=== PATIENT | female | born 1995 | race Caucasian/White ===

== ENCOUNTER 2022-03-19 11:53 | Outpatient (CLI) | payer BC, SELFPAY ==
--- NOTE | 2022-03-19 12:15 | CRLHL7_ITS ---
For Patients: As a result of the Century Cures Act, medical imaging exams and procedure reports are released immediately into your electronic medical record. You may view this report before your referring provider. If you have questions, please contact your health care provider. INDICATION: Third trimester scan, evaluate growth. CHECK GROWTH, FLUID AND POSITION, RT FOOT APPEARED ROTATED ON PREV EXAMS COMPARISON: 12/25/2021, 12/13/2021, 12/02/2021 TECHNIQUE: Real time ricks scale imaging of the fetus was performed. FINDINGS: Sonographic imaging demonstrates a single living intrauterine gestation. Fetus demonstrates a regular cardiac rate of 145 beats per minute. Fetus has a vertex position. The placenta lies anteriorly. Amniotic fluid volume appears normal and there is a single deepest vertical pocket: 4.8 cm. The estimated weight is 3357gm which lies at the 94th %. On the prior OB ultrasound exam dated 12/02/2021 the estimated weight was at the 66th%. BPD 79th percentile. HC 70th percentile. AC greater than 97th percentile. FL 62nd percentile. The HC/AC ratio measures 0.96 range (0.91-1.05). The right foot is not well evaluated on today`s exam. IMPRESSION: Sonographic gestational age 37 weeks 4 days and sonographic due date 04/05/2022. Sonographic age 11 days ahead of the clinical age. Estimated weight 94th percentile. Abdominal circumference greater than 97th percentile. The right foot is not well evaluated on today`s study. Dictated by Ryan Casanova MD @ 03/19/2022 12:55:29 PM (Electronically Signed)
== END 2022-03-19 11:54 | disposition home or self-care (01) ==
LOC: US 11:53
PROVIDERS: Visit Provider Obstetrics & Gynecology
DX: O35.8XX0 Maternal care for other (suspected) fetal abnormality and damage, not applicable or unspecified (principal); Z3A.37 37 weeks gestation of pregnancy
CPT/HCPCS: 76816

== ENCOUNTER 2022-03-19 12:51 | Outpatient (CLI) | payer BC, SELFPAY ==
[2022-03-19 14:19] LABS: Creatinine* 0.5 mg/dL (0.5-1.5); Estimated Glomerular Filt Rate 133 ml/min
[2022-03-19 14:20] LABS: Alanine Aminotransferase* 17 U/L (4-35); Aspartate Amino Transferase* 27 U/L (12-35); Blood Urea Nitrogen* 5 mg/dL (5-24)
[2022-03-19 14:21] LABS: Total Protein Urine 13 mg/dL
[2022-03-19 14:22] LABS: Creatinine Urine 33.8 mg/dL
[2022-03-20 12:38] LABS: Strep B DNA Probe Negative (Negative)
== END 2022-03-19 12:52 | disposition home or self-care (01) ==
PROVIDERS: Visit Provider Obstetrics & Gynecology
DX: Z34.93 Encounter for supervision of normal pregnancy, unspecified, third trimester (principal); O12.00 Gestational edema, unspecified trimester; Z3A.36 36 weeks gestation of pregnancy
CPT/HCPCS: 82565; 82570; 84156; 84450; 84460; 84520; 87081; 87653

== ENCOUNTER 2022-03-26 12:15 | Outpatient (CLI) | payer BC, SELFPAY ==
[2022-03-26] VITALS (9 sets, daily range): BP systolic 118–129; BP diastolic 62–75; PULSE 93–111; RESP 16; TEMP 36.8; O2SAT 97
[2022-03-26 12:42] LABS: Hematocrit 36.4 % (33.0-51.0); Hemoglobin* 12.3 gm/dL (12.0-16.0); Mean Corpuscular HGB Conc 34 gm/dL (32-36); Mean Corpuscular Hemoglobin 33 pg (26-34); Mean Corpuscular Volume 98 fL (80-100); Platelet Count* 214 K/uL (140-440); Red Blood Count 3.71 m/uL (4.00-5.20); White Blood Count* 12.48 K/uL (4.50-11.00)
[2022-03-26 12:46] LABS: Slide Review Reflex No
[2022-03-26 13:06] LABS: Aspartate Amino Transferase* 25 U/L (12-35); Blood Urea Nitrogen* 5 mg/dL (5-24); Creatinine* 0.5 mg/dL (0.5-1.5); Estimated Glomerular Filt Rate 133 ml/min; Total Protein Urine 14 mg/dL
[2022-03-26 13:07] LABS: Alanine Aminotransferase* 16 U/L (4-35); Fibrinogen* 481 mg/dL (200-450); INR 0.88 (0.91-1.10); Prothrombin Time 12.4 Seconds
[2022-03-26 13:08] LABS: Creatinine Urine 14.7 mg/dL
--- NOTE | 2022-03-26 14:41 | PM.OBLDTN ---
OB - Triage/Final Diagnosis Visit Information Narrative: The patient is a 27 year old 2 para 0 at 37.0 weeks gestation, who presents from the clinic with an elevated blood pressure, rapid weight gain, and increased edema in her lower extremities. Her blood pressures were 120's / 80's on the L&D unit. She has complains or upper abdominal pain the the last few weeks that is recently more painful on the right side. There is no change or increase to this pain except that it is more on the right side instead of bilaterally as it was previously. She describes this pain as a stabbing pain and pressure. It is worse when she lays on her right side and improves when she lays on her left or is upright. It comes and goes and is not constant. She has had occasional headaches. She had a headache yesterday but it went away without intervention. She denies vision changes. Dr. Gonzalez was consulted on this patient. She was ok with her discharging today with a repeat blood pressure check in the clinic on Thursday. I was called to L&D to visit with the patient because she was concerned about this plan. She states that her blood pressure has been more consistently elevated at home. She states that she doesn't know when to be concerned anymore. She thought her symptoms were enough to warrant closer monitoring or an induction. She states that she is just concerned about the well being of her baby. She was offered the option for longer observation, to discharge with a repeat blood pressure check on instead of Thursday or to continue with the previous plan. She choose to discharge with a repeat BP check in the clinic on . Reviewed s/sx of worsening blood pressures and plans to check them herself at home. She does have a home monitor but it is a manual BP cuff. She will be set up with an automatic blood pressure cuff at her clinic visit. Concerns about DC and when to be seen. Reason for evaluation: other (elevated BP in the clinic) Evaluation Laboratory results: Laboratory Tests 03/26/22 03/26/22 03/26/22 Range/Units 12:34 12:34 12:34 WBC 12.48 H (4.50-11.00) K/uL RBC 3.71 L (4.00-5.20) m/uL Hgb 12.3 (12.0-16.0) gm/dL Hct 36.4 (33.0-51.0) % MCV 98 (80-100) fL MCH 33 (26-34) pg MCHC 34 (32-36) gm/dL Plt Count 214 (140-440) K/uL INR 0.88 L (0.91-1.10) Fibrinogen 481 H (200-450) mg/dL BUN 5 (5-24) mg/dL Creatinine 0.5 (0.5-1.5) mg/dL Estimated GFR 133 ml/min AST 25 (12-35) U/L ALT 16 (4-35) U/L Urine Creatinine mg/dL Protein/Creatinin Ratio (0-0.19) Urine Total Protein mg/dL 03/26/22 Range/Units 12:34 WBC (4.50-11.00) K/uL RBC (4.00-5.20) m/uL Hgb (12.0-16.0) gm/dL Hct (33.0-51.0) % MCV (80-100) fL MCH (26-34) pg MCHC (32-36) gm/dL Plt Count (140-440) K/uL INR (0.91-1.10) Fibrinogen (200-450) mg/dL BUN (5-24) mg/dL Creatinine (0.5-1.5) mg/dL Estimated GFR ml/min AST (12-35) U/L ALT (4-35) U/L Urine Creatinine 14.7 mg/dL Protein/Creatinin Ratio 0.90 H (0-0.19) Urine Total Protein 14 mg/dL Vital signs: Vital Signs - 24 hr 03/26/22 12:44 03/26/22 12:45 03/26/22 12:59 Temperature Pulse Rate 111 H 108 H Respiratory Rate Blood Pressure 127/74 120/66 Pulse Oximetry 97 03/26/22 13:15 03/26/22 12:46 03/26/22 13:30 Temperature 98.3 F Pulse Rate 98 110 H Respiratory Rate 16 Blood Pressure 121/73 129/70 Pulse Oximetry 03/26/22 13:44 03/26/22 14:00 03/26/22 14:30 Temperature Pulse Rate 108 H 93 95 Respiratory Rate Blood Pressure 118/62 122/74 127/75 Pulse Oximetry
--- NOTE | 2022-03-26 17:02 | PC.OBNST ---
NST Note NST Note Start: 03/26/22 12:24 Freq: ONCE Status: Active Protocol: Document 03/26/22 16:00 [facility] (Rec: 03/26/22 17:00 [facility] [id number]) NST Note 2 Para (# of births) 0 EDC 04/16/22 Patient Presented with Complaint(s) of Other Other Complaints Continued observation of pre- eclampsia/HTN from clinic Reactive Yes Appropriate for Gestational Age Yes RN Christie Israel RN Date 03/26/22 Reactive Yes Appropriate for Gestational Age Yes KIAN Xie RN Date 03/26/22 OB NST charge Yes Complete NST Note via Write Note Yes The provider's electronic signature indicates the NST is reactive/appropriate for gestational age. *Note to provider: If an addendum is required, open the patient's chart and click on the note under the Nurse/Allied Health tab.
== END 2022-03-26 16:00 | disposition home or self-care (01) ==
LOC: OB OUT 12:18 → OB 12:35
PROVIDERS: Visit Provider Obstetrics & Gynecology
DX: Z34.93 Encounter for supervision of normal pregnancy, unspecified, third trimester (principal); Z3A.37 37 weeks gestation of pregnancy
CPT/HCPCS: 36415; 59025; 82565; 82570; 84156; 84450; 84460; 84520; 85027; 85384; 85610; 99213

== ENCOUNTER 2022-03-31 15:30 | Outpatient (CLI) | payer BC, SELFPAY ==
[2022-03-31 15:52] VITALS: BP 130/78; PULSE 87; RESP 16; TEMP 36.7; O2SAT 98
[2022-03-31 16:10] VITALS: BP 127/69
[2022-03-31 16:13] LABS: Hematocrit 34.3 % (33.0-51.0); Hemoglobin* 11.5 gm/dL (12.0-16.0); Mean Corpuscular HGB Conc 34 gm/dL (32-36); Mean Corpuscular Hemoglobin 33 pg (26-34); Mean Corpuscular Volume 99 fL (80-100); Platelet Count* 203 K/uL (140-440); Red Blood Count 3.46 m/uL (4.00-5.20); White Blood Count* 11.26 K/uL (4.50-11.00)
[2022-03-31 16:16] LABS: Slide Review Reflex No
[2022-03-31 16:28] VITALS: BP 130/70; PULSE 92
[2022-03-31 16:43] LABS: Total Protein Urine 13 mg/dL
[2022-03-31 16:44] LABS: Creatinine* 0.5 mg/dL (0.5-1.5); Estimated Glomerular Filt Rate 133 ml/min
[2022-03-31 16:45] LABS: Alanine Aminotransferase* 14 U/L (4-35); Aspartate Amino Transferase* 30 U/L (12-35); Blood Urea Nitrogen* 6 mg/dL (5-24)
[2022-03-31 16:46] LABS: Creatinine Urine 19.5 mg/dL
--- NOTE | 2022-03-31 18:36 | PC.OBNST ---
NST Note NST Note Start: 03/31/22 15:41 Freq: ONCE Status: Active Protocol: Document 03/31/22 18:32 [facility] (Rec: 03/31/22 18:34 [facility] [id number]) NST Note 2 Para (# of births) 0 EDC 04/16/22 Patient Presented with Complaint(s) of Headache,Other Other Complaints Pt came to unit from clinic for rule-out preeclampsia. Pt reported elevated pressures taken on BP cuff at place of work, and presented to clinic with 3+ edema in bilateral feet Reactive Yes Appropriate for Gestational Age Yes RN Jhoan Jin RN Date 03/31/22 Reactive Yes Appropriate for Gestational Age Yes RN ARELI George Date 03/31/22 OB NST charge Yes Complete NST Note via Write Note Yes The provider's electronic signature indicates the NST is reactive/appropriate for gestational age. *Note to provider: If an addendum is required, open the patient's chart and click on the note under the Nurse/Allied Health tab.
== END 2022-03-31 18:04 | disposition home or self-care (01) ==
LOC: OB OUT 15:46 → OB 17:14
PROVIDERS: Visit Provider Obstetrics & Gynecology
DX: Z34.93 Encounter for supervision of normal pregnancy, unspecified, third trimester (principal); Z3A.38 38 weeks gestation of pregnancy
CPT/HCPCS: 36415; 59025; 82565; 82570; 84156; 84450; 84460; 84520; 85027; 99213

== ENCOUNTER 2022-04-09 07:09 | Inpatient (IN) | payer BC, SELFPAY ==
[2022-04-09] VITALS (55 sets, daily range): BP systolic 111–149; BP diastolic 54–83; PULSE 69–122; RESP 18–20; TEMP 36.6–37.5; O2SAT 90–100; BMI 32.2
[2022-04-09 08:17] LABS: Hematocrit 33.6 % (33.0-51.0); Hemoglobin* 11.4 gm/dL (12.0-16.0); Mean Corpuscular HGB Conc 34 gm/dL (32-36); Mean Corpuscular Hemoglobin 34 pg (26-34); Mean Corpuscular Volume 99 fL (80-100); Platelet Count* 181 K/uL (140-440); Red Blood Count 3.38 m/uL (4.00-5.20); White Blood Count* 9.65 K/uL (4.50-11.00)
[2022-04-09 08:18] LABS: Slide Review Reflex No
[2022-04-09 08:25] LABS: SARS PCR* Negative SARS-CoV-2 (Negative)
[2022-04-09 08:31] LABS: Alanine Aminotransferase* 18 U/L (4-35); Aspartate Amino Transferase* 30 U/L (12-35); Blood Urea Nitrogen* 7 mg/dL (5-24); Creatinine* 0.7 mg/dL (0.5-1.5); Est. Creatinine Clearance* 136.12; Estimated Glomerular Filt Rate 122 ml/min
[2022-04-09 08:32] LABS: INR 0.91 (0.91-1.10); Prothrombin Time 12.6 Seconds
[2022-04-09 08:33] LABS: Fibrinogen* 406 mg/dL (200-450)
[2022-04-09 08:53] LABS: Creatinine Urine 39.8 mg/dL; Total Protein Urine 14 mg/dL
--- NOTE | 2022-04-09 08:56 | W.PM.LDBA ---
Subjective History of Present Illness Time Seen by Provider: 08:56 Date Seen: 04/09/22 Narrative: Patient is being admitted to Labor and Delivery for induction of labor. She is a 27 year old at 39 0/7 weeks gestation. ETHEL is 04/16/2022 by last menstrual period, consistent with early ultrasound. Her full history and physical was dictated by Dr. Estrada on 03/26/2022. Please see this for details. The patient has been extremely uncomfortable, with significant gestational edema. She has also had documented proteinuria, but has been normotensive. This morning, she states that she has had irregular mild contractions since her last examination in the clinic. She denies unusual vaginal discharge, vaginal bleeding, or leakage of fluid. Her fetus is active. OB - H&P: Exam Physical Exam: Vital signs: Pulse BP 94 135/75 04/09/22 07:52 04/09/22 07:52 Narrative: VITAL SIGNS: Noted above. GENERAL APPEARANCE: Alert cooperative white female in no acute distress. MOOD AND AFFECT: Normal. CV: Heart regular rate and rhythm. PULM: Lungs clear to auscultation bilaterally. ABDOMEN: Soft, gravid, nontender. Fundal height is cm. The fetus is in a vertex presentation by Lucas's. heart tones are present with the Doptones in the 140s. : Normal female external genitalia. Cervix is soft, mid to posterior position, 2 cm dilated, 90% effaced, with vertex at a -1 station. EXTREMITIES: Without significant edema, nontender bilaterally. NEURO: Intact. Detailed Labor and Delivery Exam: Patient Gravid: yes Dilation (cm): 2 Effacement (%): 90 Cervix position: posterior Consistency: soft Cervical ripeness score: 8 OB - Problem Based A/P Additional Plan (1) : Status: Acute (2) Gestational edema: Status: Acute Delivery/Labor/Induction Plan Plan: induction Induction method: per pitocin protocol
[2022-04-09] MEDS: LACTATED RINGERS 1000 ML 1,000 ML 125 ML IV ×4 (09:02→19:28)
[2022-04-09] MEDS: OXYTOCIN 30 unit/500 ML in NS 30 UNIT/500 ML BAG IVPB (09:03)
--- NOTE | 2022-04-09 12:55 | PM.OBPNL ---
Pain Control Time Seen by Provider: 12:30 Date Seen: 04/09/22 Pain control: tolerating well Contractions Monitor mode: External Contraction frequency: 3 Contraction pattern: Regular Contraction intensity: Mild Pelvic Exam Dilation (cm): 3 Effacement (%): 90 Station: -2 Assessment and Plan Pitocin rate (mU/min): 5 Assessment: induction ongoing Plan: continue present management Comments: AROM performed, clear fluid.
[2022-04-09] MEDS: fentaNYL 100 MCG/2 ML inj IVP ×2 (15:36→16:15)
[2022-04-09] MEDS: ONDANSETRON 2 MG/ML inj 4 MG IV (16:23)
[2022-04-09] MEDS: ROPIVACAINE 0.2% 100 ml 100 ML 12 MG EPIDURAL (16:42)
[2022-04-09] MEDS: LIDOCAINE 2% (PF) 5 ML VIAL EPIDURAL (16:42)
--- NOTE | 2022-04-09 16:51 | P.ANBPRC_ITS ---
[facility] Medical History (Updated 03/31/22 @ 15:48 by Ashlyn Gonzalez MD) Elevated BP without diagnosis of hypertension Gestational edema Surgical History (Updated 03/26/22 @ 11:56 by Mylene Estrada MD) H/O dilation and curettage Social History (Updated 03/26/22 @ 11:57 by Mylene Estrada MD) Narrative: Lives in [place] with . 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 No smoking, drinking or ilicit drug use. Smoking Status: Never smoker Meds Home Medications and Allergies Home Medications Medication Instructions Recorded Confirmed Type docosahexaenoic acid PO 03/26/22 04/07/22 History Allergies Allergy/AdvReac Type Severity Reaction Status Date / Time No Known Allergies Allergy Verified 04/07/22 14:13 Results Labs Labs: Laboratory Results - last 24 hr 04/09/22 04/09/22 04/09/22 07:20 07:54 07:58 WBC 9.65 RBC 3.38 L Hgb 11.4 L Hct 33.6 MCV 99 MCH 34 MCHC 34 Plt Count 181 INR Fibrinogen BUN Creatinine Estimated Creat Clear Estimated GFR AST ALT Urine Creatinine 39.8 Protein/Creatinin Ratio 0.30 H Urine Total Protein 14 SARS-CoV-2 (PCR) Negative SARS-CoV-2 Blood Type Antibody Screen 04/09/22 04/09/22 04/09/22 07:58 07:58 09:49 WBC RBC Hgb Hct MCV MCH MCHC Plt Count INR 0.91 Fibrinogen 406 BUN 7 Creatinine 0.7 Estimated Creat Clear 136.12 Estimated GFR 122 AST 30 ALT 18 Urine Creatinine Protein/Creatinin Ratio Urine Total Protein SARS-CoV-2 (PCR) Blood Type A Positive Antibody Screen NEGATIVE Vital Signs Vital Signs: Last Vital Signs Temp 98.1 F 04/09/22 15:14 Pulse 73 04/09/22 16:48 BP 138/70 04/09/22 16:48 Pulse Ox 98 04/09/22 16:40 Weight: 104.901 kg Height: 180.34 cm Anesthesia Procedures Epidural Insertion Patient Location: OB Reason for Block: primary anesthetic Patient Position: sitting Performed By: Ezio Varela Preanesthetic Checklist: IV checked, risks and benefits discussed, surgical consent, monitors and equipment checked, pre-op evaluation, timeout performed and anesthesia consent Prep: chlorhexidine gluconate Monitoring: blood pressure monitoring, monitor tech, continuous pulse oximetry and heart rate Approach: midline Vertebral Space: lumbar (1-5) Needle Type: Tuohy needle Injection Technique: continuous catheter Needle gauge: 17 Needle Length (cm): 10 cm Needle Insertion Depth (cm): 6 Catheter Gauge: 19 Catheter Type: multi-orifice Catheter at skin depth (cm): 12 Test Dose Result: negative and lidocaine 1.5% with epinephrine 1 to 200,000 Events: other
--- NOTE | 2022-04-09 20:41 | PM.OBPNL ---
Pain Control Time Seen by Provider: 20:41 Date Seen: 04/09/22 Pain control: tolerating well and epidural Comments: Starting to feel pressure like the baby is pushing out her rectum. Contractions Monitor mode: External Contraction frequency: 3 Contraction pattern: Regular Contraction intensity: Mild Pelvic Exam Dilation (cm): 10 Effacement (%): 100 Station: +2 Assessment and Plan Assessment: active labor Comments: Begin active pushing.
[2022-04-09] MEDS: LIDOCAINE 1% MDV 20 ML INJECTION (23:05)
--- NOTE | 2022-04-09 23:44 | P.OBPRC_ITS ---
Procedure Delivery date: 04/09/22 Procedure Done: Global Intrapartal Events: Labor Induction Induction method: per pitocin protocol Delivery augmentation: rupture of membranes and pitocin Delivery monitor: external FHT and external uterine Route of delivery: Laceration description: Vaginal - 2nd Degree (with extension of skin laceration to level of anus; rectal sphincter intact) Delivery repair: Vicryl (2-0 for reapproximation of bulbocavernosus muscles, 3-0 for vaginl repair) and Chromic (3-0 for subcuticular skin closure) Estimated blood loss (mL): 350 Anesthesia type: Epidural Disposition: floor Complications: None. Narrative: The patient is a 27 year-old admitted on 04/09/2022 at 39 Weeks, 0 Days gestation for induction of labor.? Cervical exam on admission was 2 cm/90 % effaced/-1 station with membranes intact in vertex presentation.? Contractions were occasion.? heart rate demonstrated baseline 140 bpm with moderate variability, + accelerations, - decelerations; a category 1 tracing.? Pitocin was administered intravenously to induce labor per protocol. AROM occurred at 1230 with clear fluid. ? Labor Analgesia:? Fentanyl IV at 1536 and 1615, Epidural at 1642 ? Labor onset:? 1530 ? Complete:? 2034 ? Pushing:? 2100. Initially, fetus was in OB position, pushing was suspended, side-lying release was done, and then pushing restarted approximately 30 minutes prior to delivery. ? heart tones during second stage were 140 bpm baseline, good variability, accelerations present. ? At 2254 a viable male infant delivered in vertex OA presentation over second- degree midline laceration via spontaneous vaginal delivery.? Infant was placed on maternal abdomen.? Cord was clamped and cut after a 30-60 second delay.? Nose and mouth were bulb suctioned.? weight pending.? 9 at 1 minute and 9 at 5 minutes.? Shoulder dystocia: No.? Nuchal cord: No. ? Placenta delivered spontaneously and complete at 2258 with a 3 vessel cord. ? Mother and infant were stable after delivery. ? Lacerations:? Second-degree midline with extension of the skin to the level of the anus, repaired with 2-0 vicryl, 3-0 vicryl, and 3-0 chromic. ? Blood loss: 350 mL. Blood loss measurement type: QBL ? Sponge and needles counts are correct. Infant Gender: Male presentation: vertex Placental Delivery Description: Spontaneous Cord Description: 3 Vessels
[2022-04-10] VITALS (15 sets, daily range): BP systolic 111–152; BP diastolic 63–85; PULSE 71–102; RESP 15–18; TEMP 36.6–37.3; O2SAT 95–98
[2022-04-10] MEDS: IBUPROFEN 600 MG TABLET PO ×4 (02:04→20:15)
[2022-04-10] MEDS: ACETAMINOPHEN 500 MG TABLET 1000 MG PO ×4 (05:08→23:10)
[2022-04-10 07:03] LABS: Hemoglobin* 10.6 gm/dL (12.0-16.0)
[2022-04-10] MEDS: DOCUSATE SODIUM 100 MG CAPSULE PO ×2 (08:22→20:15)
--- NOTE | 2022-04-10 10:42 | P.OBPN_ITS ---
OB - PN:Subj Subjective Date Seen: 04/10/22 Patient comments OB post-: pain well controlled, perineal pain, tolerating diet and flatus present [place] status: and doing well [place] feeding status: exclusively Narrative: Day 1:? Vaginal Delivery at 39 and 0/7 weeks.? ?? Complications:? none? The patient feels well.? The pain is well controlled with current medica tions.?Complains of some perineal pain at the site of the repaired laceration but it is controlled with medication, tucks, dermoplast, ice, and position changes. She has no new complaints.? Urinary output is adequate and she is voiding without difficulty.? Has a good appetite, is tolerating a general diet, is passing flatus, and has not had a bowel movement.? Has?small amount of rubra lochia.? She is ambulating well.?She is and feels that it is going well so far. OB - PN: Obj Exam Physical Exam: Vital signs: Temp Pulse Resp BP Pulse Ox O2 Del Method 98.6 F 75 16 111/73 96 04/10/22 07:45 04/10/22 07:45 04/10/22 07:45 04/10/22 07:45 04/10/22 07:45 04/10/22 07:45 Constitutional: Constitutional: no acute distress Routine HEENT Exam: Head: Present normal inspection Eye: Present normal appearance Routine Neck Exam: Neck: Present full ROM Routine Respiratory Exam: Respiratory: Present CTA bilaterally Routine Cardiovascular Exam: Cardiovascular: Present RRR Routine Abdominal Exam: Fundus: Present firm Routine Exam: Perineum Description: Normal Routine Extremities Exam: Extremities: Present full ROM Routine Back/Spine/Pelvis Exam: Back/Spine: Present full ROM Routine Neurological Exam: Neurological: Present alert OB - PN: Obj Data Labs Labs: Laboratory Results - last 24 hr 04/10/22 06:50 Hgb 10.6 L OB - PN: A/P Vaginal Delivery Assessment and Plan (1) : Status: Acute (2) Gestational edema: Status: Acute Plan Plan: routine care Comments: Anticipate discharge tomorrow or Thursday per pt preference.
[2022-04-11 00:15] VITALS: BP 115/75; PULSE 71; RESP 16; TEMP 36.4; O2SAT 97
[2022-04-11] MEDS: IBUPROFEN 600 MG TABLET PO ×2 (01:57→08:29)
[2022-04-11 05:15] VITALS: BP 113/71; PULSE 70; RESP 15; TEMP 36.7; O2SAT 97
[2022-04-11] MEDS: ACETAMINOPHEN 500 MG TABLET 1000 MG PO (05:45)
[2022-04-11 08:25] VITALS: BP 113/66; PULSE 90; RESP 16; TEMP 36.7; O2SAT 97
[2022-04-11] MEDS: DOCUSATE SODIUM 100 MG CAPSULE PO (08:30)
--- NOTE | 2022-04-11 09:53 | P.DS_ITS ---
DS: Providers Provider Date Seen: 04/11/22 Date of admission: 04/09/22 07:09 Primary care physician: Not a Local Provider Admitting Clinician: Dennise Jarvis CNM Attending Physician on discharge: Wanda Bean CNM Date of Discharge: 04/11/22 DS: Diagnosis Discharge Diagnosis (1) care and examination immediately after delivery: Status: Acute (2) Normal vaginal delivery: Status: Acute (3) Elevated BP without diagnosis of hypertension: Status: Acute (4) Lactating mother: Status: Acute (5) Second degree perineal laceration during delivery: Status: Acute Exam Const: Vital Signs, click to edit/add: Vital Signs - 24 hr 04/10/22 11:42 04/10/22 17:14 04/10/22 18:00 Temperature 98.4 F 98.4 F Pulse Rate [Pulse Oximeter] 83 102 H 88 Respiratory Rate 16 16 Blood Pressure [Le ft Arm] 115/71 Blood Pressure [Ri ght Arm] 119/70 152/75 H Pulse Oximetry 98 98 97 Oxygen Delivery Me thod Room Air Room Air Room Air 04/10/22 20:05 04/11/22 00:15 04/11/22 05:15 Temperature 97.8 F 97.6 F 98.0 F Pulse Rate [Pulse Oximeter] 71 71 70 Respiratory Rate 15 16 15 Blood Pressure [Le ft Arm] 122/85 115/75 113/71 Blood Pressure [Ri ght Arm] Pulse Oximetry 96 97 97 Oxygen Delivery Me thod Room Air Room Air Room Air 04/11/22 08:25 Temperature 98.0 F Pulse Rate [Pulse Oximeter] 90 Respiratory Rate 16 Blood Pressure [Le ft Arm] 113/66 Blood Pressure [Ri ght Arm] Pulse Oximetry 97 Oxygen Delivery Me thod Room Air Documenting provider has reviewed patient's vital signs: yes Common normals: no apparent distress, oriented x3, no limitations, healthy appearing, alert and well nourished HENMT: Common normals: normocephalic Head and scalp: normocephalic Eye: Common normals: PERRL and EOMs intact bilaterally Pupil: PERRL Neck & C-Spine: Common normals: full ROM and supple Chest: Common normals: inspection of chest normal Other: Breast exam: deferred Resp: Common normals: normal respiratory effort, no retractions and clear to auscultation bilaterally Auscultation: clear to auscultation bilaterally Cardio: Common normals: regular rate and regular rhythm Rate: regular rate Rhythm: regular rhythm GI: Common normals: Normal to inspection, nondistended, normoactive bowel sounds present, soft to palpation and non-tender Palpation: soft : OB/external & speculum: Yes perineal/vaginal laceration (well approximated) Laceration: 2nd Uterus: U/U Lochia: scant Back & Pelvis: Common normals: thoracic and lumbar spine normal to inspection and thoraco-lumbar ROM normal Extremity: Common normals: normal to inspection and full ROM Neuro: Common normals: oriented x3, moves all extremities and gait normal Sensorium/orientation: alert Psych: Common normals: mental status grossly normal, thought process normal, affect normal, speech normal and activity/motor behavior normal Speech: normal speech Thought process: normal thought process Skin: Common normals: no rashes or lesions noted General skin exam: no rashes or lesions noted OB - DS: Summary Hospital Course Hospital Course: The patient is a 27 year old G 2 P 1011 at 39 2/7 weeks gestation that was admitted to the Center on 04/09/22 for SROM. She had an uncomplicated vaginal delivery. She delivered a viable male . She is breast feeding and reports it is going well. the patient has done well. Peripartum Data delivery method: Vaginal Laceration description: Perineal - 2nd Degree complications: none Infant Gender: Male Discharge Plan: Home Status at Discharge Functional status at discharge: independent ambulation Overall status at discharge: patient is progressing back to baseline Time Spent with Patient Time attestation: Total time spent providing and/or coordinating discharge services: Time spent: Less than 30 minutes Discharge Plan Discharge Disposition: Home, Self-Care Date of Admission: 04/09/22 07:09 Attending Provider on Discharge: Wanda Bean Primary Care Provider: Provider,Not a Local Condition: Stable Anticipated Discharge Date/Time: 04/11/22 12:00 Discharge Medications: New acetaminophen 500 mg Tablet 1,000 mg PO Q6H PRNQty: 0 0RF docusate sodium 100 mg Capsule 100 mg PO BID Qty: 90 0RF ibuprofen 600 mg Tablet 600 mg PO Q6H PRNQty: 60 0RF Continued (DME) Blood Pressure Cuff Misc See Rx Instructions .Route Qty: 1 0RF Rx Instructions: As directed docosahexaenoic acid [ DHA] PO Discontinued hydroxyzine pamoate [Vistaril] 50 mg capsule 50 mg PO .qhs Qty: 20 0RF Rx Instructions: May use one or two capsules at bedtime as needed for sleep Discharge Orders: Discharge Order (Routine); Ordered 04/11/22 Ordered By: Wanda Bean Patient Education: OB Vaginal/Breast Feeding Activity Restrictions/Additional Instructions: Discharge instructions were reviewed with the patient including signs and symptoms of infection and home going medications Nothing vaginally for 6 weeks: no tampons or intercourse Do not drive while taking narcotic pain medication(s) Off Work or School for 8 weeks Symptoms to report to doctor: * Bleeding that saturates more than one pad per hour * Passing clots larger than the size of a golf ball * Pain not relieved by prescribed medication * Fever above 100.4 degrees Fahrenheit * A foul vaginal odor * Difficulty in emotions, mood, and functions * Thoughts of hurting yourself and/or * Painful, reddened area in your breast * Any drainage, redness, or tenderness in your IV/epidural site * Severe headache that doesn't improve after taking medications * Changes in vision, including temporary loss of vision, blurred vision, and/or light sensitivity * Upper abdominal pain (usually under ribs on the right side) * Decrease in urination or painful, frequent urinating * Chest pain * Shortness of breath * Tenderness or pain with redness and/swelling in the calf(s) of your leg 2-week visit: discuss infant feeding concerns, review control options and screen for anxiety/depression. 6-week visit for an annual exam. consultation services are available to all mothers and babies for the first year after delivery.? To make an appointment, please call [phone]. Activity Level: No Restrictions Discharge Diet: Regular Follow Up Appointments: [facility] [Provider Group] Forms: MyHealth Info Instructions
== END 2022-04-11 10:55 | disposition home or self-care (01) | DRG 560 ==
PROVIDERS: Obstetrics & Gynecology; Admitting Provider Advanced Practice Midwife; Visit Provider Advanced Practice Midwife
DX: O14.94 Unspecified pre-eclampsia, complicating childbirth (principal); O70.1 Second degree perineal laceration during delivery; Z3A.39 39 weeks gestation of pregnancy; Z37.0 Single live birth
CPT/HCPCS: 01967; 36415; 82565; 82570; 84156; 84450; 84460; 84520; 85018; 85025; 85027; 85384; 85610; 86850; 86900; 86901; 87635; A9270; J2405; J2795; J3010; J7120

== ENCOUNTER 2023-07-17 08:09 | Outpatient (CLI) | payer BC, SELFPAY ==
--- NOTE | 2023-07-17 08:15 | CRLHL7_ITS ---
For Patients: As a result of the Century Cures Act, medical imaging exams and procedure reports are released immediately into your electronic medical record. You may view this report before your referring provider. If you have questions, please contact your health care provider. INDICATION: . Evaluate for viability, size and dates. TECHNIQUE: Endovaginal pelvic ultrasound. COMPARISON: None. FINDINGS: Anechoic unilocular intrauterine cyst consistent with a gestational sac. Mean sac diameter is 2.5 cm corresponding to an EGA of 7 weeks 4 days with an ETHEL of 02/29/2024. No yolk sac or pole is present within this finding. Right and left small (less than 20 percent circumference of the gestational sac) perigestational hemorrhages are noted. 4.8 cm right ovarian complex cyst with thick internal septations converging on a solid-appearing element with straight margins. No intracystic avascular solid elements are demonstrated. This finding was likely represents hemorrhagic cyst. Follow-up to document resolution is recommended, for example in 6-12 weeks. Normal left ovary. No significant pelvic ascites. IMPRESSION: Intrauterine of uncertain viability. Short interval follow up ultrasound in 7 days is recommended to document viability. Right ovarian complex cystic lesion described above, most likely representing a hemorrhagic cyst. Follow-up to document resolution of this finding is recommended in 6-12 weeks. Dictated by El Burk MD @ 07/17/2023 9:06:55 AM (Electronically Signed)
== END 2023-07-17 08:10 | disposition home or self-care (01) ==
PROVIDERS: Visit Provider Registered Nurse
DX: Z34.91 Encounter for supervision of normal pregnancy, unspecified, first trimester (principal); Z3A.01 Less than 8 weeks gestation of pregnancy
CPT/HCPCS: 76817

== ENCOUNTER 2023-07-21 08:30 | Day surgery (SDC) | payer BC, SELFPAY ==
[2023-07-21 08:49] VITALS: BP 113/70; PULSE 79; RESP 16; TEMP 37.1; O2SAT 98
[2023-07-21] MEDS: LACTATED RINGERS 1000 ML 1,000 ML 100 ML IV ×2 (09:00→10:28)
[2023-07-21] MEDS: SODIUM CHLORIDE 0.9 % (FLUSH) 10 ML SYRINGE IVF (09:01)
[2023-07-21] MEDS: DOXYCYCLINE HYCLATE 200 MG in 0.9 % SODIUM CHLORIDE 250 ml 250 ML 250 MG IVPB (09:06)
--- NOTE | 2023-07-21 09:49 | P.PCN_ITS ---
Procedure Note Time Seen by Provider: 10:56 Date Seen: 07/21/23 Will [facility] bill your pro fee for this procedure?: Yes Procedure: Preoperative diagnosis: Kaelyn is a 28-year-old 3 para 1021 with an anembryonic at 7and 4/7 weeks gestation by ultrasound. Postoperative diagnosis: Same Procedure: Suction curettage Anesthesia: Conscious sedation, paracervical block Surgeon: Ashlyn Gonzalez MD [employer] Guard: Not applicable IV fluid: 1000 mL Estimated blood loss: 3 mL Urine output: 500 mL clear urine at the beginning of the procedure Specimen: Products of conception to pathology Findings: On exam under anesthesi: the uterus was approximately 8 weeks size, mid position. Cervical os was closed without active bleeding. Adnexa were without mass or fullness palpable. The uterus sounded to [] cm. Uterus sounded to 10 cm. On suction curettage there was a moderate to large amount of products of conception. The patient and her spouse declined products of conception to cytogenetics. Procedure: Kaelyn was taken to the operating room where conscious sedation was found to be adequate. She was placed in the dorsal lithotomy position and an exam under anesthesia was performed with with findings stated above. She was then prepped and draped in normal sterile manner. Straight catheterization was performed for approximately 500 mL of clear urine. A bivalve speculum was placed in the vagina to visualize the cervix. A paracervical block was placed using 0.5% Marcaine: 5 mL injected at the 4 and 8 o'clock positions on the cervix. The anterior lip of the cervix was grasped with a long Allis clamp. The cervix was dilated to Hegar # 10. The uterus sounded to 10 cm. A # 10 curved curette was then advanced into the uterus without difficulty. A suction curettage was then performed using 40-50 mmHg pressure. 3 passes with the curette were performed to remove all visualized tissue. The curette was removed and mild, sharp curettage was performed to verify that all of the products of conception had been removed. One last pass with the curved curette was then made to verify that all of the tissue had been removed. The Allis clamp was removed from the anterior lip of the cervix. Nothing was needed to obtain hemostasis. Excellent hemostasis was noted. The speculum was then removed from the vagina. The patient tolerated this procedure well. Sponge, lap and instrument counts were correct x2 the end of the procedure. The patient was awakened from sedation and taken to the recovery area in stable condition. Patient received doxycycline 200 mg IV x1 prior to going back to the operating r oom. Anesthesia: MAC and local Surgeon: Ashlyn Gonzalez Pathology: specimen obtained, sent to pathology Condition: stable Disposition: same day
--- NOTE | 2023-07-21 09:49 | W.PM.H&PU ---
History & Physical Update History & Physical Update H&P Reviewed and patient assessed: No changes noted
[2023-07-21] MEDS: BUPIVACAINE 0.5% 30 ML INJECTION (10:34)
[2023-07-21 10:50] VITALS: BP 106/69; PULSE 73; RESP 16; TEMP 36.5; O2SAT 96
--- NOTE | 2023-07-21 10:50 | W.ANESCHARGE ---
Anesthesia Charges Start Date/Time Anesthesia Start Date: 07/21/23 Anesthesia Start Time: 10:20 Stop Date/Time Anesthesia Stop Date: 07/21/23 Anesthesia Stop Time: 10:51
[2023-07-21 11:05] VITALS: BP 98/56; PULSE 67; RESP 16; O2SAT 99
[2023-07-21 11:20] VITALS: BP 99/59; PULSE 71; RESP 16; TEMP 36.7; O2SAT 99
[2023-07-21 11:35] VITALS: BP 106/63; PULSE 66; RESP 16; O2SAT 99
--- NOTE | 2023-07-21 12:18 | W.ANESCHARGE ---
Anesthesia Charges Start Date/Time Anesthesia Start Date: 07/21/23 Anesthesia Start Time: 10:20 Stop Date/Time Anesthesia Stop Date: 07/21/23 Anesthesia Stop Time: 10:51
== END 2023-07-21 11:51 | disposition home or self-care (01) ==
PROVIDERS: PCP Registered Nurse; Visit Provider Obstetrics & Gynecology
PROC: (CPT 59820; principal; 2023-07-21 10:00)
DX: O02.0 Blighted ovum and nonhydatidiform mole (principal)
CPT/HCPCS: 59820; 00940; 01965; 88237; 88271; 88305; 88342; J0665; J1100; J1885; J2250; J2405; J2704; J3010; J7050; J7120

== ENCOUNTER 2023-10-16 07:09 | Outpatient (CLI) | payer BC, SELFPAY ==
--- NOTE | 2023-10-16 07:15 | US_ITS ---
Patient: MALLORY GUTIÉRREZ Facility:?[facility] Patient ID:?[id number] Site Patient ID:?[id number]. Site :?[id number] Study:?US-Pelvis PELVIS TV-10/16/2023 7:45:42 AM Ordering Physician:?MAXWELL HERNANDEZ Final Report: INDICATION: Follow up right ovarian cyst TECHNIQUE: Transvaginal scanning was performed to optimally evaluate the endometrium and adnexa. Ovarian blood flow was evaluated with color-flow doppler. COMPARISON: Pelvic ultrasound of 07/17/2023 FINDINGS: The uterus is normal in size and shape. The uterus measures 7.9 x 3.6 x 5.3 cm. No uterine mass is evident. The endometrial stripe is normal in thickness at 6 mm. The previously demonstrated complex 4.8 cm right ovarian cyst has resolved. The right ovary measures 3.8 x 2.7 x 2.6 cm and left 3.1 x 1.4 x 1.2 cm. Ovarian blood flow is demonstrated with color-flow and pulsed Doppler. No adnexal mass is evident. No free fluid is demonstrated. IMPRESSION: Negative pelvic ultrasound. Previously demonstrated complex 4.8 cm right ovarian cyst resolved. Dictated by Kyrie Dobbins MD @ 10/16/2023 9:57:53 AM Signed by:?Kyrie Dobbins MD @10/16/2023 9:57:53 AM (Electronic Signature)
== END 2023-10-16 07:10 | disposition home or self-care (01) ==
PROVIDERS: Visit Provider Registered Nurse
DX: N83.201 Unspecified ovarian cyst, right side (principal)
CPT/HCPCS: 76830

== ENCOUNTER 2024-02-09 08:51 | Outpatient (CLI) | payer BC, SELFPAY | END 2024-02-09 08:52 | disposition home or self-care (01) | LOC: NFLDREF 02-11 15:08 | PROVIDERS: Visit Provider Obstetrics & Gynecology | DX: Z34.90 Encounter for supervision of normal pregnancy, unspecified, unspecified trimester (principal) | CPT/HCPCS: 84702 ==

== ENCOUNTER 2024-02-11 11:30 | Outpatient (CLI) | payer BC, SELFPAY | END 2024-02-11 11:31 | disposition home or self-care (01) | LOC: NFLDREF 02-12 11:28 | PROVIDERS: Visit Provider Obstetrics & Gynecology | DX: Z34.90 Encounter for supervision of normal pregnancy, unspecified, unspecified trimester (principal) | CPT/HCPCS: 84702 ==

== ENCOUNTER 2024-02-15 08:13 | Outpatient (CLI) | payer BC, SELFPAY | END 2024-02-15 08:14 | disposition home or self-care (01) | LOC: NFLDREF 02-16 18:30 | PROVIDERS: Visit Provider Obstetrics & Gynecology | DX: Z34.81 Encounter for supervision of other normal pregnancy, first trimester (principal) | CPT/HCPCS: 84702 ==

== ENCOUNTER 2024-03-01 07:00 | Outpatient (CLI) | payer BC, SELFPAY ==
--- NOTE | 2024-03-01 07:15 | CRLHL7_ITS ---
For Patients: As a result of the Century Cures Act, medical imaging exams and procedure reports are released immediately into your electronic medical record. You may view this report before your referring provider. If you have questions, please contact your health care provider. INDICATION: First trimester scan, establish dates. COMPARISON: None. TECHNIQUE: Real-time ricks-scale imaging of the pelvis was performed. FINDINGS: Sonographic imaging demonstrates a single living intrauterine gestation. The embryo demonstrates a regular cardiac rate measuring 124 beats per minute. The embryo`s crown-rump length measurement of 0.85 cm corresponds to a gestational age of 6 weeks 6 days with a sonographic due date of 10/19/2024. There is a normal-appearing yolk sac. There are no gross abnormalities noted within the embryo at this early state of development. The gestational sac has a normal appearance. There is a 14 x 8 x 7 millimeter perigestational hemorrhage. The amount of fluid within the sac appears appropriate for gestational age. The cervix is closed. The myometrium appears normal. The ovaries are of normal size. Corpus luteal cyst right ovary. There are no suspicious fluid collections noted in the cul-de-sac. IMPRESSION: Gestational age calculated at 6 weeks 6 days with a sonographic due date of 10/19/2024. 14 x 8 x 7 millimeter left-sided subchorionic hemorrhage. Dictated by Ryan Casanova MD @ 03/01/2024 12:13:51 PM (Electronically Signed)
== END 2024-03-01 07:01 | disposition home or self-care (01) ==
LOC: US 07:00
PROVIDERS: Visit Provider Physician Assistant
DX: Z34.91 Encounter for supervision of normal pregnancy, unspecified, first trimester (principal); O20.9 Hemorrhage in early pregnancy, unspecified; Z3A.01 Less than 8 weeks gestation of pregnancy
CPT/HCPCS: 76817; 82565; 82570; 84156; 84450; 84460; 86703; 86706; 86803; 86850; 86900; 86901; 87086; 87340; 87491; 87591

== ENCOUNTER 2024-03-01 08:00 | Outpatient (CLI) | payer BC, SELFPAY ==
[2024-03-01 13:28] LABS: Chlamydia DNA Amplified* NOT DETECTED (No Detected); GC DNA Amplified* NOT DETECTED (No Detected)
== END 2024-03-01 08:01 | disposition home or self-care (01) ==
PROVIDERS: Visit Provider Physician Assistant
DX: Z34.91 Encounter for supervision of normal pregnancy, unspecified, first trimester (principal); Z3A.01 Less than 8 weeks gestation of pregnancy
CPT/HCPCS: 82565; 82570; 84156; 84450; 84460; 86592; 86703; 86704; 86706; 86762; 86787; 86803; 86850; 86900; 86901; 87086; 87340; 87491; 87591

== ENCOUNTER 2024-03-03 06:30 | Outpatient (CLI) | payer BC, SELFPAY | END 2024-03-03 06:31 | disposition home or self-care (01) | LOC: NFLDREF 03-06 03:38 | PROVIDERS: Visit Provider Physician Assistant | DX: Z34.81 Encounter for supervision of other normal pregnancy, first trimester (principal) | CPT/HCPCS: 82570; 84156 ==

== ENCOUNTER 2024-03-15 07:02 | Outpatient (CLI) | payer BC, SELFPAY ==
--- NOTE | 2024-03-15 07:15 | CRLHL7_ITS ---
For Patients: As a result of the Century Cures Act, medical imaging exams and procedure reports are released immediately into your electronic medical record. You may view this report before your referring provider. If you have questions, please contact your health care provider. INDICATION: DATING AND VIABILITY FOLLOW UP COMPARISON: 03/01/2024 TECHNIQUE: Real-time ricks-scale imaging of the pelvis was performed. FINDINGS: Sonographic imaging demonstrates a single living intrauterine gestation. The embryo demonstrates a regular cardiac rate measuring 169 beats per minute. The embryo`s crown-rump length measurement of 2.4 cm corresponds to a gestational age of 9 weeks 1 day with a sonographic due date of 10/17/2024. There is a normal-appearing yolk sac. There are no gross abnormalities noted within the embryo at this early state of development. The gestational sac has a normal appearance. There is a 2.6 x 1.0 x 1.0 cm perigestational hemorrhage. The amount of fluid within the sac appears appropriate for gestational age. The cervix is closed. The myometrium appears normal. The ovaries are of normal size. Corpus luteal cyst right ovary. There are no suspicious fluid collections noted in the cul-de-sac. IMPRESSION: Single living intrauterine with sonographic gestational age 9 weeks 1 day and sonographic due date of 10/17/2024. Left-sided subchorionic hemorrhage measuring 2.6 x 1.0 x 1.0 cm. Previously, this measured 1.4 x 0.8 x 0.7 cm. Dictated by Ryan Casanova MD @ 03/15/2024 9:34:54 AM (Electronically Signed)
== END 2024-03-15 07:03 | disposition home or self-care (01) ==
LOC: US 07:02
PROVIDERS: Visit Provider Physician Assistant
DX: O26.21 Pregnancy care for patient with recurrent pregnancy loss, first trimester (principal); O20.9 Hemorrhage in early pregnancy, unspecified; Z3A.09 9 weeks gestation of pregnancy
CPT/HCPCS: 76817

== ENCOUNTER 2024-05-30 07:10 | Outpatient (CLI) | payer BC, SELFPAY ==
--- NOTE | 2024-05-30 07:15 | CRLHL7_ITS ---
For Patients: As a result of the Century Cures Act, medical imaging exams and procedure reports are released immediately into your electronic medical record. You may view this report before your referring provider. If you have questions, please contact your health care provider. INDICATION: Evaluate anatomy. COMPARISON: 03/15/2024 TECHNIQUE: Real time ricks scale imaging of the fetus was performed as well as color Doppler analysis of the umbilical vessels. FINDINGS: Sonographic imaging demonstrates a single living intrauterine gestation. Fetus demonstrates a regular cardiac rate of 134 beats per minute. Fetus has a vertex position. The placenta lies anteriorly without evidence of placenta previa. Edge of the placenta is located 6.1 cm from the internal cervical os. Amniotic fluid volume appears normal. Single deepest vertical pocket: 3.6 cm. The cervix is closed and measures 4.5 cm in length. The composite ultrasound gestational age is calculated at 20 weeks 5 days with an estimated sonographic due date of 10/12/2024. The estimated weight is 372 grams which lies at the 70th %. The following biometric measurements were obtained: Biparietal diameter: 4.9 cm/20 weeks 6 days 75th% Head circumference: 18.4 cm/20 weeks 5 days 62nd% Abdominal circumference: 15.9 cm/21 weeks 0 days 69th% Femur length: 3.3 cm/20 weeks 2 days 43rd% The HC/AC ratio measures: 1.15 range (1.06-1.25) On anatomic survey, there is a normal appearance of the cerebral ventricles, cavum septi pellucidi, cisterna magna and cerebellum. The nose, lips, and facial profile appear normal. The cervical, thoracic and lumbar spine are well visualized and appear normal. There is a normal four-chamber heart view and the left and right ventricular outflow tracts appear normal. The diaphragm and stomach appear normal. However, there is a hyperechoic focus adjacent to the stomach measuring 4 x 3 x 3 millimeters, image 350. The kidneys and bladder also appear normal. There is a normal three-vessel cord and cord insertion site. The four extremities appear normal. IMPRESSION: Concordance of clinical and sonographic dating. Indeterminate 4 millimeter echogenic structure adjacent to the stomach. Remainder of the anatomic survey is normal. Level 2 ultrasound suggested. Dictated by Ryan Casanova MD @ 05/31/2024 2:04:40 PM (Electronically Signed)
== END 2024-05-30 07:11 | disposition home or self-care (01) ==
LOC: US 07:11
PROVIDERS: Visit Provider Obstetrics & Gynecology
DX: Z34.92 Encounter for supervision of normal pregnancy, unspecified, second trimester (principal); Z3A.20 20 weeks gestation of pregnancy
CPT/HCPCS: 76805

== ENCOUNTER 2024-06-08 09:25 | Outpatient (CLI) | payer BC, SELFPAY | END 2024-06-08 09:26 | disposition home or self-care (01) | LOC: US 09:26 | PROVIDERS: Visit Provider Obstetrics & Gynecology | DX: Z34.92 Encounter for supervision of normal pregnancy, unspecified, second trimester (principal); Z3A.21 21 weeks gestation of pregnancy | CPT/HCPCS: 76811 ==

== ENCOUNTER 2024-07-06 13:05 | Outpatient (CLI) | payer BC, SELFPAY | END 2024-07-06 13:06 | disposition home or self-care (01) | LOC: US 13:05 | PROVIDERS: Visit Provider Obstetrics & Gynecology | DX: O35.DXX0 Maternal care for other (suspected) fetal abnormality and damage, fetal gastrointestinal anomalies, not applicable or unspecified (principal); Z3A.25 25 weeks gestation of pregnancy | CPT/HCPCS: 76816 ==

== ENCOUNTER 2024-07-25 09:20 | Outpatient (CLI) | payer BC, SELFPAY | END 2024-07-25 09:21 | disposition home or self-care (01) | LOC: NFLDREF 07-27 06:31 | PROVIDERS: Visit Provider Obstetrics & Gynecology | DX: Z34.83 Encounter for supervision of other normal pregnancy, third trimester (principal) | CPT/HCPCS: 86592 ==

== ENCOUNTER 2024-09-15 09:38 | Outpatient (CLI) | payer BC, SELFPAY ==
[2024-09-15 09:47] VITALS: BP 132/73; PULSE 105; RESP 16; TEMP 36.6
[2024-09-15 10:31] LABS: Appearance Urine Clear (Clear); Bilirubin Urine Negative (Negative); Blood Urine Negative (Negative); Color Urine Yellow (Yellow); Glucose Urine Negative (Negative); Ketones Urine Trace (Negative); Leukocyte Esterase Urine Trace (Negative); Nitrite Urine Negative (Negative); Protein Urine Negative (Negative); Urobilinogen Urine 0.2 (0.2-1.0)
[2024-09-15 11:09] LABS: Bacteria Urine Moderate; RBC Urine 0-2 (0-2); Squamous Epithelial Cell Urine Few (None-Few); WBC Urine 0-2 (0-5)
--- NOTE | 2024-09-15 12:25 | W.PM.OBO ---
OB Outpatient HPI History of Present Illness History of Present Illness: 29 year old at weeks gestation presents with chief complaint of contractions beginning last night. These interrupted her sleep from 1:00 a.m. to 7:00 a.m. this morning. Upon awakening, they were somewhat less strong than they were last night, rating them 4/10. She had similar contractions the night before last. Her first baby was born at 39 weeks. She denies any bleeding or loss of fluid. Good movement. Meds Home Medications and Allergies Home Medications ?Medication ?Instructions ?Recorded ?Confirmed ?Type docosahexaenoic acid 200 mg PO DAILY 03/26/22 09/15/24 History famotidine 20 mg tablet (Pepcid) 20 mg PO QDAY 05/10/24 09/15/24 History magnesium 200 mg tablet 200 mg PO QDAY 06/27/24 09/15/24 History Allergies Allergy/AdvReac Type Severity Reaction Status Date / Time No Known Allergies Allergy Verified 09/15/24 09:56 [facility] Medical History Right ovarian cyst ?N83.201 - Unspecified ovarian cyst, right side (ICD-10) Anembryonic ?O02.0 - Blighted ovum and nonhydatidiform mole (ICD-10) Second degree perineal laceration during delivery ?O70.1 - Second degree perineal laceration during delivery (ICD-10) Normal vaginal delivery ?O80 - Encounter for full-term uncomplicated delivery (ICD-10) Elevated BP without diagnosis of hypertension ?R03.0 - Elevated blood-pressure reading, without diagnosis of hypertension (ICD-10) Gestational edema ?O12.00 - Gestational edema, unspecified trimester (ICD-10) Surgical History H/O dilation and curettage ?Z98.890 - Other specified postprocedural states (ICD-10) Social History (Updated 03/01/24 @ 09:06 by Dina Rivas PA-C) Narrative: SOCIAL HISTORY: Occupation: Patient coordinator. Marital status: . Religion/cultural needs: no. Chemical or radiation exposure: no. Pre- tobacco use: no. Pre- alcohol use: 1 per month. Current tobacco use: no. Current alcohol use:no. Recreational drug use: no. Dietary restrictions: no. Blood transfusion acceptable in an emergency: yes. PSYCHOSOCIAL HISTORY: History of depression or currently depressed: no. Current or past physical, emotional, or sexual mistreatment: no. Problems that will make it hard to make it to appointments: no. What is your current living situation?: I presently have a place to live Problems where you live: no known problems In the past 12 months, utilities in danger of being shut off: no In past 12 months, lack of transportation kept you from medical appts, meetings, work, or getting things needed for daily living: no In the past 12 mos, have been you worried that your food would run out before you had money to buy more?: never true In the past 12 mos, the food you bought just didn't last and you didn't have money to buy more?: never true Smoking Status: Never smoker How often do you have a drink containing alcohol: never AUDIT-C Alcohol total score: 0 Non-prescribed substance use: denies use Caffeine: No How often does anyone, including family, friends and others, physically hurt you: never How often does anyone, including family, friends and others, insult or talk down to you: never How often does anyone, including family, friends and others, threaten you with harm: never How often does anyone, including family, friends and others, scream or curse at you: never History History 4 Elective abortions 0 Para 1 Spontaneous abortions 2 Hx # Term Pregnancies 1 Ectopic pregnancies 0 Hx # Pregnancies 0 Multiple births 0 Number of Living Children 1 Past Pregnancies Del. Date GA/Weeks Outcome Route wt Inf Gender Labor Lgth Anesthesia Location Provider Compli 04/09/22 39 live - full term vaginal delivery 8 lb 5 oz Male 14hrs epidural [facility] ([place]) gestational hypertension Delivery Date: 04/09/22 Last Updated by: Ruba Irwin MD 2nd degree vaginal laceration, labor induced OB - H&P: Exam Physical Exam Vital signs: Temp Pulse Resp BP 98 F 105 H 16 132/73 09/15/24 09:47 09/15/24 09:47 09/15/24 09:47 09/15/24 09:47 Narrative: Physical exam: Vitals as noted above. General: No acute distress Psych: Alert and oriented x 3, full affect HEENT: Normocephalic, atraumatic Abdomen: Soft, nontender, gravid. No suprapubic tenderness. Cervical exam per RN, performed twice over the course of a few hours, demonstrated external os dilated to 1 cm with no record changer tester the course of this time tracing: Baseline 130, accelerations present, no decelerations, moderate variability. She intermittently exhibits regular contractions throughout her stay, but these become less frequent near the and of her time on the Center Labs Labs Laboratory Tests 09/15/24 Range/Units 10:10 Urine Color Yellow (Yellow) Urine Appearance Clear (Clear) Urine pH 7.0 (5.0-8.5) Ur Specific [place] 1.020 (1.000-1.030) Urine Protein Negative (Negative) Urine Glucose (UA) Negative (Negative) Urine Ketones Trace A (Negative) Urine Blood Negative (Negative) Urine Nitrite Negative (Negative) Urine Bilirubin Negative (Negative) Urine Urobilinogen 0.2 (0.2-1.0) Ur Leukocyte Esterase Trace A (Negative) Urine RBC 0-2 (0-2) Urine WBC 0-2 (0-5) Ur Squamous Epith Cells Few (None-Few) Urine Bacteria Moderate A (None) Group B Strep DNA Pending Assessment and Plan Assessment and plan (1) Uterine contractions during : Problem comment: Without cervical change Status: Acute Assessment and Plan: Throughout her time on the Center, she was early rehydrated. status remained reassuring. Urinalysis suggests urinary tract infection. Cultures pending. She was treated with a prescription for Macrobid 100 mg b.i.d. for 5 days. She has a follow-up visit on Thursday in clinic. She is to return to Center should she have worsening contraction pain. Group B strep was collected today. (2) Urinary tract infection: Status: Acute Time Spent with Patient Time with Patient: less than 15 minutes
[2024-09-15] MEDS: NITROFURANTOIN MONOHYD MACRO 100 MG CAPSULE PO (12:28)
--- NOTE | 2024-09-15 15:02 | PC.OBNST ---
NST Note NST Note Start: 09/15/24 09:48 Freq: ONCE Status: Active Protocol: Document 09/15/24 14:57 BAW (Rec: 09/15/24 15:02 BAW No Response) NST Note 4 Para (# of births) 1 EDC 10/15/24 Gestational Age In Weeks & Days 35 Weeks & 5 Days Patient Presented with Complaint(s) of Contractions/cramping Reactive Yes Appropriate for Gestational Age Yes KIAN Bolton RNC Date 09/15/24 Reactive Yes Appropriate for Gestational Age Yes KIAN Jin RNC Date 09/15/24 OB NST charge Yes Complete NST Note via Write Note Yes The provider's electronic signature indicates the NST is reactive/appropriate for gestational age. *Note to provider: If an addendum is required, open the patient's chart and click on the note under the Nurse/Allied Health tab.
[2024-09-16 09:18] LABS: Strep B DNA Probe Negative (Negative)
[2024-09-16 09:28] LABS: Strep B Susceptibility Needed? No
== END 2024-09-15 12:36 | disposition home or self-care (01) ==
LOC: OB OUT 09:39 → OB 09:40
PROVIDERS: Visit Provider Obstetrics & Gynecology
DX: O47.03 False labor before 37 completed weeks of gestation, third trimester (principal); Z3A.35 35 weeks gestation of pregnancy
CPT/HCPCS: 59025; 81001; 81003; 87081; 87086; 87653; G0463; A9270

== ENCOUNTER 2024-09-27 10:28 | Outpatient (CLI) | payer BC, SELFPAY ==
[2024-09-27] VITALS (19 sets, daily range): PULSE 80–110; RESP 20; TEMP 36.7; O2SAT 95–100
[2024-09-27] MEDS: TERBUTALINE 1 MG/ML INJ 0.25 MG SUBCUT (11:47)
[2024-09-27] MEDS: LACTATED RINGERS 1000 ML 1,000 ML IV (12:05)
--- NOTE | 2024-09-27 15:29 | P.PCN_ITS ---
Procedure Note Time Seen by Provider: 11:40 Date Seen: 09/27/24 Date of procedure: 09/27/24 Will [facility] bill your pro fee for this procedure?: Yes Pre-op diagnosis: 1. 37 3/7 weeks gestation. 2. Ketan breech presentation. Post-op diagnosis: other (1. 37 3/7 weeks gestation. 2. Vertex presentation.) Procedure: External cephalic version. Procedure Description: FINDINGS: Nonstress test: heart rate baseline 135 beats per minute, good variability, 15 x 15 accelerations present, no decelerations, category 1. Limited OB ultrasound: Single, living, intrauterine gestation in a ketan breech presentation with the back along the maternal right, grossly normal amniotic fluid volume, anterior fundal placenta. PROCEDURE NOTE: A nonstress test was performed, which was reactive and reassuring. A limited OB ultrasound was performed at the bedside to determine position. Findings noted above. Informed consent was obtained for external cephalic version. Terbutaline 0.25 mg was administered to the patient subcutaneously. External cephalic version was attempted. I applied upward pressure to the breech, Dr. Shelton applied pressure to the vertex, and we attempted to gently coax the fetus in a forward roll in a clockwise direction. This attempt was unsuccessful. A 2nd attempt was made to coax the infant in a backwards roll in a counter-clockwise direction, as I applied pressure to the head and Dr. Shelton applied pressure to the vertex. This attempt was successful, with a brief break in pressure made when the fetus was in an oblique presentation with the vertex in the maternal left lower quadrant, before proceeding with the final rotation to vertex. heart tones were noted to be normal between the attempts. The patient was placed back on the external monitor, and initially the heart rate was 100 beats per minute baseline, with good variability but no accelerations or decelerations, category two. With continued monitoring the heart rate gradually accelerated back to normal baseline with accelerations, category one. The patient tolerated the procedure well. The patient was ultimately discharged home in stable condition. Anesthesia: none Surgeon: Ruba Irwin MD Plant Culture Manager: Esperanza Shelton Condition: stable Disposition: observation (Then home.)
--- NOTE | 2024-09-28 00:32 | PC.OBNST ---
NST Note NST Note Start: 09/28/24 00:25 Freq: ONCE Status: Active Protocol: Document 09/27/24 19:00 GISELE (Rec: 09/28/24 00:32 GISELE [id number]) NST Note 4 Para (# of births) 1 EDC 10/15/24 Gestational Age In Weeks & Days 37 Weeks & 4 Days Patient Presented with Complaint(s) of Other Other Complaints Scheduled ECV Reactive Yes Appropriate for Gestational Age Yes KIAN Leonard RNC Date 09/27/24 Reactive Yes Appropriate for Gestational Age Yes KIAN Galeas RN Date 09/27/24 OB NST charge Yes Complete NST Note via Write Note Yes The provider's electronic signature indicates the NST is reactive/appropriate for gestational age. *Note to provider: If an addendum is required, open the patient's chart and click on the note under the Nurse/Allied Health tab.
== END 2024-09-27 13:34 | disposition home or self-care (01) ==
LOC: OB 13:27 → OB CLI 09-28 11:28 → OB 09-28 11:28
PROVIDERS: Visit Provider Obstetrics & Gynecology
DX: O32.1XX0 Maternal care for breech presentation, not applicable or unspecified (principal); Z3A.37 37 weeks gestation of pregnancy
CPT/HCPCS: 59025; 59412; 76815; G0463; J3105; J7120

== ENCOUNTER 2024-10-11 05:50 | Inpatient (IN) | payer BC, SELFPAY ==
[2024-10-11] VITALS (45 sets, daily range): BP systolic 92–140; BP diastolic 51–84; PULSE 71–106; RESP 12–18; TEMP 36.4–37.1; O2SAT 95–99; BMI 29.8
[2024-10-11 07:58] LABS: Basophils Percent Auto 0.1 % (0.0-3.0); Eosinophils Percent Auto 0.4 % (0.0-7.0); Hematocrit 33.7 % (33.0-51.0); Lymphocytes Percent Auto 13.4 % (20-44); Mean Corpuscular HGB Conc 33 gm/dL (32-36); Mean Corpuscular Hemoglobin 31 pg (26-34); Mean Corpuscular Volume 96 fL (80-100); Monocytes Percent Auto 6.1 % (0.0-11.0); Platelet Count* 206 K/uL (140-440); RDW Coefficient of Variation % 13.3 % (11.5-15.5); Red Blood Count 3.51 m/uL (4.00-5.20); White Blood Count* 13.44 K/uL (4.50-11.00)
[2024-10-11 08:00] LABS: Slide Review Reflex No
--- NOTE | 2024-10-11 08:31 | PM.OBPNL ---
Subjective Time Seen by Provider: 14:25 Date Seen: 10/11/24 Narrative: Kaelyn is a 29 yo P 1 woman at 39 weeks, 3 days gestation here for labor. Since my 1st evaluation, she has had an epidural. She is feeling comfortable. Objective Vital Signs: Last Vital Signs Pulse 77 10/11/24 07:17 BP 103/57 L 10/11/24 07:17 Pulse Ox 97 10/11/24 07:17 Comments: General: No acute distress, lying on her left side. .. Sterile vaginal exam: 5 cm, 100% effaced,-1 station, vertex AROM for clear fluid. tracing: Baseline 125, accelerations present, no decelerations, moderate variability Contractions approximately every 2 minutes.. Assessment Assessment: early labor Amniotic Membrane Status: SROM Status: Category l Tracing Comments: Reassuring tracing no further episodes of arrhythmia since around 6:00 a.m. GBS negative Labor Progress: On the threshold of entering active labor Maternal Status: Reassuring Plan Plan: Continue Pitocin... Augmentation Continuous monitoring.
--- NOTE | 2024-10-11 08:51 | W.PM.LDBA ---
Subjective History of Present Illness Date Seen: 10/11/24 Narrative: Patient is being admitted to Labor and Delivery for early labor. She is a 29 year old at 39 weeks, 3 days gestation. Her full history and physical was dictated by Dr. Irwin on 09/26/24. Please see this for details. There She has been up most of the night with contractions. She is feeling tired and anxious about labor. Specific Issues/Plans Partner: Selwyn Son: Benny Baby: Boy! H&P: 09/26/[address] Irwin # Alejandro breech at 37 2/7 weeks Successful ECV on 09/27/24! # history of recurrent loss x 2 # IOL for severe gestational edema, associated proteinuria, blood pressures did not meet criteria Will obtain baseline pre E labs: pr/cr ratio: 1.03H, others all normal 24 hour urine for protein: 254mg # son: right clubfoot # Indeterminate 4 mm echogenic structure adjacent to stomach on FAS. Otherwise normal. Level 2 US: As below. # Seen on Center for contractions without cervical change on 09/15. GBS negative from that visit. Treated for UTI based on results of UA, but urine culture negative for infection; antibiotics stopped. Imagin/14: anatomy. anterior placenta without previa, 3 vessel cord, normal fluid. EFW 70%, AC 67%. Indeterminate 4 millimeter echogenic structure adjacent to the stomach. Remainder of the anatomic survey is normal. Level 2 ultrasound suggested. 06/08/2024 Level 2 US: echogenic focus in anterior-superior stomach, echogenic bowel. Differential dx: normal variant, congenital infection, about 1% risk of Trisomy 21, CF. Discussed amniocentesis. Follow up US recommended. 07/06/24: Echogenic bowel resolved. 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 Offered carrier screening for CF, NIPT for Trisomy 21 which the patient declined. Vaccinations: COVID: Declined Flu: 05/30 Tdap: 08/22 RSV: Declined 32 week mental health: 08/22/2024 Last pap:05/26/22 WNL, HPV(-) GBS negative 09/15 OB - Problem Based A/P Additional Plan (1) : Status: Acute Plan woman at 39 weeks, 3 days gestation in latent labor. There were reported periods of arrhythmia noted overnight, which reportedly manifested as a lower baseline. The last time that this was noted on the strip was at 6:00 a.m. and the lowest baseline recorded was 110. GBS negative Given that her contractions have become less frequent, and that there is a new finding of intermittent arrhythmia, I recommended induction of labor with Pitocin. Patient agrees. Augmentation to be started. Continuous monitoring. Delivery/Labor/Induction Plan Induction method: per pitocin protocol OB Exam Physical Exam Vital signs: Pulse BP Pulse Ox 77 103/57 L 97 10/11/24 07:17 10/11/24 07:17 10/11/24 07:17 Narrative: Physical exam: General: No acute distress Psych: Alert and oriented x3, full affect HEENT: Normocephalic, atraumatic Heart: Regular rate and rhythm, no murmur rub or gallop Lungs: Clear to auscultation bilaterally Abdomen: Soft, nontender, gravid, cephalic lie Lower extremities: No edema or erythema Pelvic exam: deferred; was 4 / 60 / -3 per RN At 4:40 AM tracing: Baseline 120, accelerations present, no decelerations, moderate variability Contractions every 5-8 minutes
[2024-10-11] MEDS: LACTATED RINGERS 1000 ML 1,000 ML 125 ML IV ×2 (09:47→15:03)
[2024-10-11] MEDS: OXYTOCIN 30 unit/500 ML in NS 30 UNIT/500 ML BAG IVPB (09:48)
[2024-10-11] MEDS: LIDOCAINE 2% (PF) 5 ML VIAL EPIDURAL (11:46)
[2024-10-11] MEDS: ROPIVACAINE 0.2% 100 ml 100 ML 12 MG EPIDURAL (11:55)
--- NOTE | 2024-10-11 11:59 | PM.ANBPRC ---
[facility] Medical History Right ovarian cyst ?N83.201 - Unspecified ovarian cyst, right side (ICD-10) Anembryonic ?O02.0 - Blighted ovum and nonhydatidiform mole (ICD-10) Second degree perineal laceration during delivery ?O70.1 - Second degree perineal laceration during delivery (ICD-10) Normal vaginal delivery ?O80 - Encounter for full-term uncomplicated delivery (ICD-10) Elevated BP without diagnosis of hypertension ?R03.0 - Elevated blood-pressure reading, without diagnosis of hypertension (ICD-10) Gestational edema ?O12.00 - Gestational edema, unspecified trimester (ICD-10) Surgical History H/O dilation and curettage ?Z98.890 - Other specified postprocedural states (ICD-10) Social History Narrative: SOCIAL HISTORY: Occupation: Patient coordinator. Marital status: . Sabianism/cultural needs: no. Chemical or radiation exposure: no. Pre- tobacco use: no. Pre- alcohol use: 1 per month. Current tobacco use: no. Current alcohol use:no. Recreational drug use: no. Dietary restrictions: no. Blood transfusion acceptable in an emergency: yes. PSYCHOSOCIAL HISTORY: History of depression or currently depressed: no. Current or past physical, emotional, or sexual mistreatment: no. Problems that will make it hard to make it to appointments: no. What is your current living situation?: I presently have a place to live Problems where you live: no known problems In the past 12 months, utilities in danger of being shut off: no In past 12 months, lack of transportation kept you from medical appts, meetings, work, or getting things needed for daily living: no In the past 12 mos, have been you worried that your food would run out before you had money to buy more?: never true In the past 12 mos, the food you bought just didn't last and you didn't have money to buy more?: never true Smoking Status: Never smoker How often do you have a drink containing alcohol: never AUDIT-C Alcohol total score: 0 Non-prescribed substance use: denies use Caffeine: No How often does anyone, including family, friends and others, physically hurt you: never How often does anyone, including family, friends and others, insult or talk down to you: never How often does anyone, including family, friends and others, threaten you with harm: never How often does anyone, including family, friends and others, scream or curse at you: never Meds Home Medications and Allergies Home Medications ?Medication ?Instructions ?Recorded ?Confirmed ?Type docosahexaenoic acid 200 mg PO DAILY 03/26/22 10/10/24 History famotidine 20 mg tablet (Pepcid) 20 mg PO QDAY 05/10/24 10/10/24 History magnesium 200 mg tablet 200 mg PO QDAY 06/27/24 10/10/24 History Allergies Allergy/AdvReac Type Severity Reaction Status Date / Time No Known Allergies Allergy Verified 10/10/24 11:26 Results Labs Labs: Laboratory Results - last 24 hr 10/11/24 07:51 WBC 13.44 H RBC 3.51 L Hgb 11.0 L Hct 33.7 MCV 96 MCH 31 MCHC 33 RDW Coeff of Prakash 13.3 Plt Count 206 Neut % (Auto) 79.0 H Lymph % (Auto) 13.4 L Hill % (Auto) 6.1 Eos % (Auto) 0.4 Baso % (Auto) 0.1 Neut # (Auto) 10.60 H Lymph # (Auto) 1.80 Hill # (Auto) 0.80 Eos # (Auto) 0.10 Baso # (Auto) 0.00 Abs Immat Gran (auto) 0.10 Imm/Tot Granulo (auto) 1.0 Blood Type A Positive Antibody Screen NEGATIVE Vital Signs Vital Signs: Last Vital Signs Temp 98.5 F 10/11/24 11:53 Pulse 74 10/11/24 11:57 Resp 16 10/11/24 11:53 BP 127/64 10/11/24 11:57 Pulse Ox 99 10/11/24 11:51 Weight: 97.159 kg Height: 180.34 cm Anesthesia Procedures Epidural Insertion Patient Location: OB Start Time: 11:30 Stop Time: 12:30 Start Date: 10/11/24 Stop Date: 10/11/24 Reason for Block: procedure for pain Patient Position: sitting Performed By: Rafael Medina Preanesthetic Checklist: IV checked, risks and benefits discussed, monitors and equipment checked, pre-op evaluation, timeout performed and anesthesia consent Prep: chlorhexidine gluconate Monitoring: blood pressure monitoring, continuous pulse oximetry and heart rate Approach: midline Vertebral Space: lumbar (1-5) Epidural Technique: JAZZMINE saline Needle Type: Tuohy needle Injection Technique: continuous catheter Needle gauge: 17 Needle Length (cm): 10 cm Needle Insertion Depth (cm): 8 Catheter Gauge: 19 Catheter Type: multi-orifice Catheter at skin depth (cm): 15 Test Dose Result: negative and lidocaine 1.5% with epinephrine 1 to 200,000
[2024-10-11] MEDS: ONDANSETRON 2 MG/ML inj 4 MG IV (14:58)
[2024-10-11] MEDS: LIDOCAINE 1 % PF 30 ML INJECTION (15:26)
--- NOTE | 2024-10-11 15:51 | W.PM.VAGD1_ITS ---
Procedure Delivery date: 10/11/24 Procedure Done: Global Intrapartal Events: Labor Augmentation Delivery augmentation: rupture of membranes Delivery monitor: external FHT Route of delivery: Laceration description: Perineal - 2nd Degree Delivery repair: Vicryl Estimated blood loss (mL): 200 Anesthesia type: Epidural Disposition: floor Narrative: The patient is a 29 year-old G 4 P 1-0-2-1 woman admitted on 10/11/2024 at 39 weeks, 3 Days gestation for early labor. Intermittent arrhythmia was noted incidentally during her time in observation; this was not visible on the monitor but consisted of occasional missed beats. Shortly after her admission, it did not recur throughout the remainder of her labor course.? Cervical exam on admission was 4 cm with membranes intact in vertex presentation.? Contractions were every 5 minutes.? heart rate demonstrated baseline 120 bpm with moderate variability, positive accelerations, no decelerations; a category 1 tracing.? . SROM occurred at 2:25 p.m. with clear fluid. ? Labor Analgesia:? Epidural ? Pitocin:? Yes ? Labor onset:? 11:12 a.m. ? Complete:? 3:06 p.m. ? Pushing:? 3:14 p.m. ? heart tones during second stage were notable for a decrease in the baseline into the 100s with an otherwise reactive appearing tracing. ?. At . 3:19 p.m a viable male infant delivered in vertex FRANKY presentation over second-degree perineal laceration via spontaneous vaginal delivery.? was placed on maternal abdomen.? Cord was clamped and cut after a 30-60 second delay.? Nose and mouth were bulb suctioned.? Infant weight pending.? 8 at 1 minute and 9 at 5 minutes.? Shoulder dystocia: No.? Nuchal cord: Yes, x1, reduced prior to delivery of the 's body. ? Placenta delivered spontaneously and complete at 3:25 p.m. with a 3 vessel cord. ? Mother and were stable after delivery. Lacerations:? Second-degree perineal laceration, repaired with running stitch of 2-0 Vicryl after infiltration with a total 10 mL 1% lidocaine. Additionally, there was a shallow periurethral laceration that. Was bleeding slightly and pressure was applied to this area with a sponge. ? Blood loss: 200 mL. Blood loss measurement type: EBL ? Sponge and needles counts are correct. [place] Infant Gender: Male presentation: vertex Placental Delivery Description: Spontaneous Cord Description: 3 Vessels and Nuchal Cord
[2024-10-11] MEDS: IBUPROFEN 600 MG TABLET PO (18:24)
--- NOTE | 2024-10-11 18:50 | PM.ANPOST ---
Post Anesthesia Note Post Anesthesia Note Patient seen: Inpatient Respiratory Status: adequate Cardiovascular Status: adequate Mental Status: baseline Pain: adequate Temp: baseline Anesthetic awareness: N/A Complications: none Follow care: none
[2024-10-11] MEDS: ACETAMINOPHEN 500 MG TABLET 1000 MG PO (20:20)
[2024-10-12 00:24] VITALS: PULSE 90; RESP 12; TEMP 37.1; O2SAT 95
[2024-10-12] MEDS: IBUPROFEN 600 MG TABLET PO ×3 (00:26→12:57)
[2024-10-12] MEDS: ACETAMINOPHEN 500 MG TABLET 1000 MG PO (02:23)
[2024-10-12 05:02] VITALS: BP 95/60; PULSE 83; RESP 16; TEMP 36.8; O2SAT 97
[2024-10-12 06:32] LABS: Hemoglobin* 10.2 gm/dL (12.0-16.0)
[2024-10-12 07:47] VITALS: BP 123/87; PULSE 88; RESP 16; TEMP 36.4; O2SAT 97
[2024-10-12] MEDS: DOCUSATE SODIUM 100 MG CAPSULE PO (08:03)
--- NOTE | 2024-10-12 08:43 | PM.OBDSVD1 ---
DS: Providers Provider Date Seen: 10/12/24 Date of admission: 10/11/24 05:50 Primary care physician: Not a Local Provider Admitting Clinician: Ruba Irwin MD Attending Physician on discharge: Ruba Irwin MD Date of Discharge: 10/12/24 DS: Diagnosis Discharge Diagnosis (1) Lactating mother: Status: Acute (2) care following vaginal delivery: Status: Acute (3) Second degree perineal laceration: Status: Acute Exam Narrative: Exam Narrative: GENERAL APPEARANCE:? normal affect, alert, no distress? MOOD:? appropriate? CHEST:? clear to auscultation and percussion? HEART:? regular rate and rhythm? ABDOMEN:? soft, non-tender the uterine fundus is U/2 and is appropriate for the stage of recovery.? PERINEUM:? mild edema of the perineum, there is a 2nd degree laceration that is healing well.? EXTREMITIES:? normal and no edema? Const: Vital Signs, click to edit/add: Vital Signs - 24 hr 10/11/24 09:54 10/11/24 11:31 10/11/24 11:32 Temperature 97.5 F L Pulse Rate 85 98 Pulse Rate [Pulse Oximeter] Respiratory Rate 18 Blood Pressure 114/65 129/71 Blood Pressure [Le ft Arm] Pulse Oximetry 97 98 Oxygen Delivery Me thod 10/11/24 11:36 10/11/24 11:41 10/11/24 11:43 Temperature Pulse Rate 83 Pulse Rate [Pulse Oximeter] Respiratory Rate Blood Pressure 122/73 Blood Pressure [Le ft Arm] Pulse Oximetry 97 96 Oxygen Delivery Me thod 10/11/24 11:45 10/11/24 11:46 10/11/24 11:47 Temperature Pulse Rate 88 82 Pulse Rate [Pulse Oximeter] Respiratory Rate Blood Pressure 128/72 126/68 Blood Pressure [Le ft Arm] Pulse Oximetry 97 Oxygen Delivery Me thod 10/11/24 11:49 10/11/24 11:51 10/11/24 11:53 Temperature 98.5 F Pulse Rate 77 79 81 Pulse Rate [Pulse Oximeter] Respiratory Rate 16 Blood Pressure 128/67 127/65 131/68 Blood Pressure [Le ft Arm] Pulse Oximetry 99 Oxygen Delivery Me thod 10/11/24 11:55 10/11/24 11:57 10/11/24 11:59 Temperature Pulse Rate 73 74 75 Pulse Rate [Pulse Oximeter] Respiratory Rate Blood Pressure 123/62 127/64 121/60 Blood Pressure [Le ft Arm] [facility] 12:05 10/11/24 12:10 10/11/24 12:15 Temperature Pulse Rate 77 74 76 Pulse Rate [Pulse Oximeter] Respiratory Rate Blood Pressure 129/60 121/64 121/64 Blood Pressure [Le ft Arm] Pulse [facility]ximetry [facility] 12:30 10/11/24 12:46 10/11/24 13:01 Temperature Pulse Rate 76 73 73 Pulse Rate [Pulse Oximeter] Respiratory Rate Blood Pressure 123/67 100/53 L 99/58 L Blood Pressure [Le ft Arm] Pulse [facility]ximetry [facility] 10/[facility] 13:15 10/11/24 13:30 10/11/24 13:45 Temperature Pulse Rate 81 71 86 Pulse Rate [Pulse Oximeter] Respiratory Rate Blood Pressure 96/51 L 105/54 L 92/51 L Blood Pressure [Le ft Arm] Pulse Oximetry [facility] 10/[facility] 14:01 10/11/24 14:15 10/11/24 14:31 Temperature Pulse Rate 72 82 81 Pulse Rate [Pulse Oximeter] Respiratory Rate Blood Pressure 108/51 L 102/56 L 109/53 L Blood Pressure [Le ft Arm] Pulse Oximetry [facility] 10/[facility]/24 14:45 10/11/24 14:45 10/11/24 14:45 Temperature Pulse Rate 75 82 Pulse Rate [Pulse Oximeter] Respiratory Rate Blood Pressure 118/64 117/66 Blood Pressure [Le ft Arm] Pulse [facility]ximetry [facility] 10/11/24 15:01 10/11/24 15:15 10/11/24 15:27 Temperature Pulse Rate 82 103 H 83 Pulse Rate [Pulse Oximeter] Respiratory Rate Blood Pressure 131/59 L 140/84 H 129/62 Blood Pressure [Le ft Arm] Pulse [facility]ximetry [facility] 10[facility] 15:42 10/11/24 15:57 10/11/24 16:12 Temperature Pulse Rate 106 H 78 80 Pulse Rate [Pulse Oximeter] Respiratory Rate Blood Pressure 135/63 126/61 134/60 Blood Pressure [Le ft Arm] Pulse Oximetry Oxygen Delivery Me thod 10/11/24 16:27 10/11/24 16:42 10/11/24 16:57 Temperature Pulse Rate 71 82 79 Pulse Rate [Pulse Oximeter] Respiratory Rate Blood Pressure 126/61 126/62 127/63 Blood Pressure [Le ft Arm] Pulse Oximetry Oxygen Delivery Me thod 10/11/24 17:12 10/11/24 17:27 10/11/24 17:42 Temperature Pulse Rate 74 82 91 Pulse Rate [Pulse Oximeter] Respiratory Rate Blood Pressure 126/69 126/67 121/67 Blood Pressure [Le ft Arm] Pulse Oximetry Oxygen Delivery Me thod 10/11/24 17:57 10/11/24 20:57 10/12/24 00:24 Temperature 98.8 F 98.8 F Pulse Rate Pulse Rate [Pulse Oximeter] 90 90 Respiratory Rate 12 12 Blood Pressure 114/69 Blood Pressure [Le ft Arm] 104/60 Pulse Oximetry 95 95 Oxygen Delivery Me thod Room Air Room Air 10/12/24 05:02 10/12/24 07:47 Temperature 98.3 F 97.5 F L Pulse Rate Pulse Rate [Pulse Oximeter] 83 88 Respiratory Rate 16 16 Blood Pressure Blood Pressure [Le ft Arm] 95/60 123/87 Pulse Oximetry 97 97 Oxygen Delivery Me thod Room Air Room Air OB - DS: Summary Hospital Course Hospital Course: Kaelyn is a 29 year old G 4 P 2 at 39.3 weeks gestation that was admitted to the Center on 10/11/24 for spontaneous labor. She had an uncomplicated vaginal delivery. She delivered a viable male infant. She is breast feeding and working on a difficult latch. Encouraged her to meet with before discharge and after discharge as well and ECFE classes for support. the patient has done well. Her pain is well controlled with current medications.? She has no new complaints.? Urinary output is adequate and she is voiding without difficulty.? Has a good appetite, is tolerating a general diet, is passing flatus, and has not had a bowel movement.? Has scant amount of rubra lochia.? She is ambulating well. Her partner is planning a vasectomy and encouraged condoms or a diaphragm until testing is complete post procedure. Peripartum Data Infant delivery method: Vaginal Laceration description: Perineal - 2nd Degree complications: none [place] Infant Gender: Male Infant Discharge Plan: Home Status at Discharge Functional status at discharge: independent ambulation Overall status at discharge: patient is progressing back to baseline Time Spent with Patient Time attestation: Total time spent providing and/or coordinating discharge services: Discharge Plan Discharge Disposition: Home, Self-Care Date of Admission: 10/11/24 05:50 Attending Provider on Discharge: Madelaine Velazquez Primary Care Provider: Provider,Not a Local Condition: Stable Anticipated Discharge Date/Time: 10/12/24 17:00 Discharge Medications: New docusate sodium 100 mg Capsule 100 mg PO DAILY Qty: 90 0RF Rx Instructions: Take 1-2 tablets daily as needed for constipation. ibuprofen 600 mg Tablet 600 mg PO Q6H PRNQty: 60 0RF Continued famotidine [Pepcid] 20 mg tablet 20 mg PO QDAY magnesium 200 mg tablet 200 mg PO QDAY docosahexaenoic acid [ DHA] 200 mg PO DAILY Discharge Orders: Discharge Order (Routine); Ordered 10/12/24 Ordered By: Madelaine Velazquez Patient Education: OB Vaginal/Breast Feeding Additional Instructions: Discharge instructions were reviewed with the patient including signs and symptoms of infection and home going medications.? Lifting Restrictions: 20 pounds for 6? weeks? ?? Do not drive while taking narcotic pain meds.? Off Work or School for 6 weeks.? ?? Symptoms to report to doctor:? -Bleeding that saturates more than one pad per hour? -Passing clots larger than the size of a golf ball? -Pain not relieved by prescribed medication? -Fever above 100.4 degrees Fahrenheit? -A foul vaginal odor? -Difficulty in emotions, mood and functions? -Thoughts of hurting yourself and/or ? -Painful, reddened area in your breast? -Any drainage, redness or tenderness in your IV/epidural site? -Severe headache that doesn't improve after taking medications? -Changes in vision, including temporary loss of vision, blurred vision, and/or light sensitivity? -Upper abdominal pain (usually under ribs on the right side)? -Decrease in urination or painful, frequent urinating? -Chest pain? -Shortness of breath? -Tenderness or pain with redness and/swelling in the calf(s) of your leg? ?? Follow Up in clinic in 2 and 6 weeks.? ?? consultation services are available to all mothers and babies for the first year after delivery.? To make an appointment, please call [phone].? Activity Level: Activity as Tolerated Discharge Diet: Regular Follow Up Appointments: [facility] [Provider Group] Provider,Not a Local [Primary Care Provider] - Forms: MyHealth Info Instructions
[2024-10-12 13:29] VITALS: BP 108/71; PULSE 75; RESP 18; TEMP 37; O2SAT 96
[2024-10-13 00:56] LABS: Rapid Plasma Reagin (RPR) Non Reactive (Non Reactive)
== END 2024-10-12 17:18 | disposition home or self-care (01) | DRG 560 ==
LOC: OB OUT 05:51 → OB 10-12 08:45
PROVIDERS: Obstetrics & Gynecology; Admitting Provider Obstetrics & Gynecology; Visit Provider Obstetrics & Gynecology
DX: O70.1 Second degree perineal laceration during delivery (principal); Z3A.39 39 weeks gestation of pregnancy; Z37.0 Single live birth; N96 Recurrent pregnancy loss; Z87.59 Personal history of other complications of pregnancy, childbirth and the puerperium; Z82.79 Family history of other congenital malformations, deformations and chromosomal abnormalities; O76 Abnormality in fetal heart rate and rhythm complicating labor and delivery
CPT/HCPCS: 01967; 36415; 85018; 85025; 86592; 86850; 86900; 86901; G0463; A9270; J2003; J2371; J2405; J2795; J7120

== ENCOUNTER 2024-10-25 11:58 | Outpatient (CLI) | payer BC, SELFPAY ==
[2024-10-25 18:59] LABS: Bacterial Vaginosis* Negative (Negative); Candida glab/krus NOT DETECTED (No Detected); Candida species NOT DETECTED (No Detected); Trichomonas vaginalis NOT DETECTED (No Detected)
== END 2024-10-25 11:59 | disposition home or self-care (01) ==
LOC: NFLDREF 11:58
PROVIDERS: Visit Provider Midwife
DX: N89.8 Other specified noninflammatory disorders of vagina (principal); Z39.2 Encounter for routine postpartum follow-up
CPT/HCPCS: 81513; 87481; 87661

== ENCOUNTER 2024-10-28 09:13 | Outpatient (CLI) | payer BC, SELFPAY ==
--- NOTE | 2024-10-28 09:15 | CRLHL7_ITS ---
For Patients: As a result of the Century Cures Act, medical imaging exams and procedure reports are released immediately into your electronic medical record. You may view this report before your referring provider. If you have questions, please contact your health care provider. INDICATION: Non-toxic single thyroid nodule COMPARISON: none TECHNIQUE: Rao scale and color Doppler images were acquired of the thyroid gland. FINDINGS: Solid and cystic nodule right thyroid lobe is present measuring 3 x 5 x 8 millimeters, TR 3. Isthmus measures 3.4 millimeters. The right lobe measures 5.6 x 1.5 x 1.9 cm and the left lobe measures 5.3 x 1.5 x 1.9 cm in size. Thyroid echotexture is mildly heterogeneous. The color Doppler images demonstrate mildly increased vascularity. There is no evidence of cervical lymphadenopathy or parathyroid mass. IMPRESSION: Sub cm TR 3 nodule right thyroid lobe. No further follow-up indicated. Dictated by Ryan Casanova MD @ 10/28/2024 10:19:17 AM (Electronically Signed)
== END 2024-10-28 09:14 | disposition home or self-care (01) ==
LOC: US 09:14
PROVIDERS: Visit Provider Midwife
DX: E04.1 Nontoxic single thyroid nodule (principal)
CPT/HCPCS: 76536